=== PATIENT | female | born 1970 | race Caucasian/White ===

== ENCOUNTER 2022-12-09 20:52 | Inpatient (IN) | payer OTHER ==
[~2022-12-09] VITALS: Ht 170.2 cm; Wt 117.5 kg
[2022-12-09 21:19] VITALS: BP 118/75; PULSE 85; RESP 19; TEMP 96.8; O2SAT 100
[2022-12-09 21:40] LABS: BILIRUBIN,URINE 2+ (NEGATIVE); BLOOD, URINE 3+ (NEGATIVE); COLOR,URINE YELLOW (YELLOW); LEUKOCYTE ESTERASE ,URINE TRACE (NEGATIVE); NITRITE, URINE POSITIVE (NEGATIVE); PH,URINE 6.5 (5.0-9.0); PROTEIN,URINE 3+ (NEGATIVE); UGLUCOSE NEGATIVE (NEGATIVE)
[2022-12-09 21:46] LABS: APPEARANCE,URINE HAZY (CLEAR)
[2022-12-09 21:50] LABS: RBC,URINE TOO NUMEROUS TO COUN /HPF (0-5); WBC,URINE 0-5 /HPF (0-5)
[2022-12-09 21:51] LABS: BACTERIA,URINE 2+ /HPF (None Seen); SQUAMOUS EPITHELIAL CELL,UR None Seen /LPF (0-3 (FEW))
[2022-12-09 22:00] LABS: BASOPHILS % (AUTO) 0.5 % (0.0-2.0); EOSINOPHILS # (AUTO) 0.2 K/uL (0-0.4); EOSINOPHILS % (AUTO) 3.5 % (0.0-4.0); HEMATOCRIT 43.4 % (36-48); HEMOGLOBIN 14.6 g/dL (12.0-16.0); LYMPHOCYTES # (AUTO) 1.5 K/uL (2.5-16.5); LYMPHOCYTES % (AUTO) 33.5 % (20.5-51.1); MEAN CORPUSCULAR HEMOGLOBIN 29 pg (27-31); MEAN CORPUSCULAR HGB CONC 34 g/dL (33-37); MEAN CORPUSCULAR VOLUME 85.9 fL (80-94); MONOCYTES # (AUTO) 0.4 K/uL (0.8-1.0); MONOCYTES % (AUTO) 8.4 % (1.7-9.3); NEUTROPHILS # (AUTO) 2.5 K/uL (1.8-7.7); NEUTROPHILS % (AUTO) 54.1 % (42.2-75.2); PLATELET COUNT (AUTO) 354 K/uL (140-450); RED BLOOD CELL COUNT(AUTO) 5.04 MIL/uL (4.20-5.40); RED CELL DISTRIBUTION WIDTH 13.8 % (11.6-13.7); WHITE BLOOD COUNT (AUTO) 4.6 K/uL (4.8-10.8)
[2022-12-09] MEDS ORDERED: ONDANSETRON 4 MG/2 ML VIAL IVP ONE (22:05)
[2022-12-09] MEDS ORDERED: MORPHINE SULFATE 4 MG/ML SYR IVP ONE (22:05)
[2022-12-09 22:30] LABS: ALANINE AMINOTRANSFERASE 31 U/L (12-78); ALBUMIN 3.3 g/dL (3.4-5.0); ALKALINE PHOSPHATASE 61 U/L (50-136); ANION GAP 10.8 (8-16); ASPARTATE AMINOTRANSFERASE 26 U/L (15-37); CALCIUM 8.8 mg/dL (8.5-10.1); CARBON DIOXIDE 29.4 mmol/L (21-32); CHLORIDE 105 mmol/L (98-107); CREATININE 1.2 mg/dL (0.6-1.3); GFR ARICAN-AMERICAN 61 mL/min (>90); GFR NON ARICAN-AMERICAN 51 mL/min (>90); GLUCOSE 134 mg/dL (74-106); LIPASE 212 U/L (73-393); POTASSIUM 3.2 mmol/L (3.5-5.1); SODIUM SERUM 142 mmol/L (136-145); TOTAL BILIRUBIN 0.2 mg/dL (0.0-1.0); TOTAL PROTEIN, SERUM 6.8 g/dL (6.4-8.2); UREA NITROGEN, BLOOD 19 mg/dL (7-18)
[2022-12-09 23:57] VITALS: O2SAT 99
[2022-12-10] MEDS ORDERED: MORPHINE SULFATE 4 MG/ML SYR IVP ONE
[2022-12-10] MEDS ORDERED: ONDANSETRON 4 MG/2 ML VIAL IVP ONE
[2022-12-10] MEDS ORDERED: KETOROLAC 15 MG/ML VIAL IVP ONE (00:20)
[2022-12-10] MEDS ORDERED: LEVOFLOXACIN 750 MG/D5W PREMIX 150 ML IV ONE (01:20)
[2022-12-10] MEDS ORDERED: NACL 0.9% 1,000 ML IV ONE (01:20)
[2022-12-10] MEDS ORDERED: POTASSIUM CHLORIDE 10 MEQ TABER PO PRN (02:05)
[2022-12-10] MEDS ORDERED: ONDANSETRON 4 MG/2 ML VIAL IM/IVP PRN (02:05)
[2022-12-10] MEDS ORDERED: DOCUSATE SODIUM 100 MG GELCAP PO PRN (02:05)
[2022-12-10] MEDS ORDERED: ACETAMINOPHEN 325 MG TAB PO PRN (02:05)
[2022-12-10] MEDS ORDERED: HYDROcodone/APAP 7.5/325 MG 1 TAB PO PRN (02:05)
[2022-12-10] MEDS ORDERED: ZOLPIDEM 5 MG TAB PO PRN (02:05)
[2022-12-10] MEDS ORDERED: NACL 0.9% 1,000 ML IV SCH (02:05)
[2022-12-10] MEDS ORDERED: guaiFENesin DM 200/20 MG-10 ML 10 ML UDC PO PRN (02:05)
[2022-12-10 02:45] VITALS: BP 110/60; PULSE 81; RESP 20; TEMP 97.1; O2SAT 95
[2022-12-10] MEDS ORDERED: SUD30 PO (03:30)
[2022-12-10] MEDS ORDERED: CETI1SYR11 PO (03:30)
[2022-12-10] MEDS ORDERED: HYDR200T65 PO (03:30)
[2022-12-10] MEDS ORDERED: MONT-72 PO (03:30)
[2022-12-10] MEDS ORDERED: LEVO0.114 PO (03:30)
[2022-12-10] MEDS ORDERED: FEXO180T82 PO (03:30)
[2022-12-10] MEDS ORDERED: OMEP40EC23 PO (03:30)
[2022-12-10] MEDS ORDERED: AMLO10TA89 PO (03:30)
[2022-12-10 06:33] LABS: ALBUMIN 2.8 g/dL (3.4-5.0); ANION GAP 10.6 (8-16); CALCIUM 8.1 mg/dL (8.5-10.1); CARBON DIOXIDE 28.4 mmol/L (21-32); CREATININE 1.1 mg/dL (0.6-1.3); TOTAL BILIRUBIN 0.3 mg/dL (0.0-1.0); TOTAL PROTEIN, SERUM 6.3 g/dL (6.4-8.2)
[2022-12-10 06:36] LABS: BASOPHILS % (AUTO) 0.6 % (0.0-2.0); EOSINOPHILS % (AUTO) 0.1 % (0.0-4.0); HEMATOCRIT 41.4 % (36-48); HEMOGLOBIN 13.8 g/dL (12.0-16.0); LYMPHOCYTES # (AUTO) 1.2 K/uL (2.5-16.5); LYMPHOCYTES % (AUTO) 15.9 % (20.5-51.1); MEAN CORPUSCULAR HEMOGLOBIN 29 pg (27-31); MEAN CORPUSCULAR HGB CONC 33 g/dL (33-37); MONOCYTES # (AUTO) 0.4 K/uL (0.8-1.0); MONOCYTES % (AUTO) 5.8 % (1.7-9.3); NEUTROPHILS # (AUTO) 5.7 K/uL (1.8-7.7); NEUTROPHILS % (AUTO) 77.6 % (42.2-75.2); PLATELET COUNT (AUTO) 356 K/uL (140-450); RED BLOOD CELL COUNT(AUTO) 4.81 MIL/uL (4.20-5.40); RED CELL DISTRIBUTION WIDTH 13.5 % (11.6-13.7); WHITE BLOOD COUNT (AUTO) 7.3 K/uL (4.8-10.8)
[2022-12-10] MEDS ORDERED: KETOROLAC 15 MG/ML VIAL IVP SCH (06:52)
[2022-12-10 08:00] VITALS: BP 109/61; PULSE 73; RESP 18; TEMP 96.6; O2SAT 97
[2022-12-10] MEDS: NACL 0.9% 1,000 ML IV SCH ×3 (08:30→20:49)
[2022-12-10] MEDS ORDERED: MORPHINE SULFATE 2 MG/ML SYR IVP PRN (08:35)
[2022-12-10] MEDS: PANTOPRAZOLE 40 MG TABEC PO SCH (09:10)
[2022-12-10] MEDS: TAMSULOSIN 0.4 MG CAP PO SCH (09:10)
[2022-12-10] MEDS: MONTELUKAST SODIUM 10 MG TAB PO SCH (09:11)
[2022-12-10] MEDS ORDERED: KETOROLAC 15 MG/ML VIAL IVP PRN (14:00)
[2022-12-10 16:00] VITALS: BP 100/60; PULSE 72; RESP 18; TEMP 98.1; O2SAT 95
[2022-12-10 20:00] VITALS: BP 108/60; PULSE 87; RESP 16; TEMP 97.3; O2SAT 96
[2022-12-10] MEDS: HYDROXYCHLOROQUINE 200 MG TAB PO SCH (20:49)
[2022-12-11 04:00] VITALS: BP 115/62; PULSE 72; RESP 18; TEMP 98.3; O2SAT 100
[2022-12-11 05:03] LABS: BASOPHILS % (AUTO) 0.5 % (0.0-2.0); EOSINOPHILS # (AUTO) 0.1 K/uL (0-0.4); EOSINOPHILS % (AUTO) 1.8 % (0.0-4.0); HEMATOCRIT 40.2 % (36-48); HEMOGLOBIN 13.3 g/dL (12.0-16.0); LYMPHOCYTES # (AUTO) 1.8 K/uL (2.5-16.5); LYMPHOCYTES % (AUTO) 39.6 % (20.5-51.1); MEAN CORPUSCULAR HEMOGLOBIN 29 pg (27-31); MEAN CORPUSCULAR HGB CONC 33 g/dL (33-37); MEAN CORPUSCULAR VOLUME 86.3 fL (80-94); MONOCYTES # (AUTO) 0.4 K/uL (0.8-1.0); MONOCYTES % (AUTO) 9.1 % (1.7-9.3); NEUTROPHILS # (AUTO) 2.3 K/uL (1.8-7.7); PLATELET COUNT (AUTO) 311 K/uL (140-450); RED BLOOD CELL COUNT(AUTO) 4.65 MIL/uL (4.20-5.40); WHITE BLOOD COUNT (AUTO) 4.6 K/uL (4.8-10.8)
[2022-12-11] MEDS ORDERED: LEVOTHYROXINE 0.112 MG TAB PO SCH (06:30)
[2022-12-11 06:47] LABS: ALBUMIN 2.8 g/dL (3.4-5.0); ANION GAP 13.3 (8-16); CALCIUM 8.4 mg/dL (8.5-10.1); CARBON DIOXIDE 24.9 mmol/L (21-32); POTASSIUM 3.2 mmol/L (3.5-5.1); TOTAL BILIRUBIN 0.3 mg/dL (0.0-1.0); TOTAL PROTEIN, SERUM 6.2 g/dL (6.4-8.2)
[2022-12-11] MEDS ORDERED: POTASSIUM CHLORIDE 10 MEQ TABER PO SCH (08:50)
[2022-12-11] MEDS: HYDROXYCHLOROQUINE 200 MG TAB PO SCH (09:00)
[2022-12-11] MEDS ORDERED: LEVO750T75 PO (09:20)
[2022-12-11] MEDS ORDERED: TAMS0.4C96 PO (09:21)
[2022-12-11] MEDS: MONTELUKAST SODIUM 10 MG TAB PO SCH (09:56)
[2022-12-11] MEDS: PANTOPRAZOLE 40 MG TABEC PO SCH (09:57)
[2022-12-11] MEDS: TAMSULOSIN 0.4 MG CAP PO SCH (10:00)
[2022-12-11 10:37] VITALS: BP 112/69; PULSE 65; RESP 18; TEMP 96
== END 2022-12-11 11:25 | disposition home or self-care (01) | DRG 690 ==
LOC: MED 20:52 → MMU 12-10 02:09 → MTU 12-10 02:16
PROVIDERS: ADMIT Student in an Organized Health Care Education/Training Program; ATTEND Student in an Organized Health Care Education/Training Program
DX: N13.6 Pyonephrosis (principal); Z68.41 Body mass index [BMI] 40.0-44.9, adult; E03.9 Hypothyroidism, unspecified; M32.9 Systemic lupus erythematosus, unspecified; E66.9 Obesity, unspecified; I73.00 Raynaud's syndrome without gangrene; Z88.0 Allergy status to penicillin; Z87.442 Personal history of urinary calculi; Z88.2 Allergy status to sulfonamides
CPT/HCPCS: 36415; 71045; 80053; 81001; 83690; 84484; 85025; 87081; 87086; 93005; 96365; 96375; 96376; 99285; J0696; J1885; J1956; J2270; J2405; J7060; Q0092; Q0163; Q9967